=== PATIENT | female | born 1995 | race Caucasian/White ===

== ENCOUNTER 2019-12-24 16:47 | Emergency (ER) | payer OTHER ==
[~2019-12-24] VITALS: Ht 175.3 cm; Wt 71.7 kg
[2019-12-24 17:53] VITALS: BP 125/69
[2019-12-24 17:59] LABS: HEMATOCRIT 39.8 % (36.0-47.0); HEMOGLOBIN 12.7 g/dL (12.0-15.5); RED BLOOD COUNT 4.85 x10^6/uL (3.50-5.40); RED CELL DISTRIBUTION WIDTH 13.9 % (11.5-14.5)
--- NOTE | 2019-12-24 18:01 | PHYS DOC ---
Past History Past Medical History: No Pertinent History (PHILLIP OLIVER MD) Past Surgical History: Cholecystectomy, Other Additional Past Surgical Histo: gastric bypass (PHILLIP OLIVER MD) Alcohol Use: None (PHILLIP OLIVER MD) Adult General Chief Complaint Chief Complaint: VAGINAL PROBLEM HPI HPI Patient is a 24 year old female who presents with complaining of vaginal bleeding. Patient delivered a baby on December 11 earlier this month. 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 She was having normal vaginal bleeding after her delivery which had slowed down. She also had an IUD placed with delivery. Her IUD came out in Saturday. She started having heavy vaginal bleeding this morning which is finally started to slow down over the last hour. She had some chest pain last night which is now resolved. She denies any shortness of breath, cough, fever. She had some vaginal discharge last week that was milky which has now resolved. She denies any shortness of breath. She has not had any issues with bleeding previously. (PHILLIP OLIVER MD) Review of Systems Review of Systems General: Denies fever, chills, sweats, fatigue Eyes: Denies drainage, blurred vision HENT: Denies rhinorrhea, sore throat Respiratory: Denies cough, shortness of breath, wheezing Cardiac: Denies edema, palpitations, chest pain GI: Denies abdominal pain, N/V MSK: Denies back pain, neck pain Skin: Denies rash, jaundice Neuro: Denies headache, dizziness Psychiatric: Denies SI/HI All other systems were reviewed and found to be within normal limits, except as documented in this note. (PHILLIP OLIVER MD) Allergies Allergies Allergies Coded Allergies Type Severity Reaction Last Updated Verified No Known Drug Allergies 12/24/19 No (PHILLIP OLIVER MD) Physical Exam Physical Exam Constitutional: Well developed, well nourished, Cooperative, NAD, non-toxic appearing HEENT: Normocephalic, atraumatic, oropharynx moist, EOMI, PERRL, no drainage from eyes, normal conjunctiva Neck: Supple, normal range of motion, no stridor Cardiovascular: RRR, 2+ radial pulses bilaterally, no edema Respiratory: CTA bilaterally, no respiratory distress, no wheezing/crackles Abdomen: Soft, nontender, nondistended, no masses Skin: Warm, dry, intact Extremities: No obvious deformities Neurologic: Alert and Oriented x3, motor and sensory function grossly normal, no focal deficits Psychologic: Normal affect, normal judgment, normal mood. No SI/HI (PHILLIP OLIVER MD) Current Patient Data Vital Signs Vital Signs Date Time Temp Pulse Resp B/P (MAP) Pulse Ox O2 Delivery O2 Flow Rate FiO2 12/24/19 16:56 99.4 136/74 (94) 100 Room Air (PHILLIP OLIVER MD) EKG EKG [] (PHILLIP OLIVER MD) Radiology/Procedures Radiology/Procedures [] (PHILLIP OLIVER MD) Impressions: Exam: Ultrasound pelvis Indication: Bleeding, discharge, IUD fell off Technique: Real-time grayscale and color Doppler images of the pelvis were obtained by the department gas distribution plant operator. Comparisons: None FINDINGS: Uterus measures 13.6 x 9.9 x 7.1 cm. Endometrium is 2.3 cm in thickness. Right ovary measures 2.8 x 1.5 x 1.4 cm. Left ovary measures 3.5 x 2.0 x 1.4 cm. Vascular flow is identified within the ovaries bilaterally. Trace free fluid. IMPRESSION: 1. Heterogenous fluid noted within the endometrial cavity, likely representing hemorrhagic products. 2. Normal sonographic appearance of the ovaries. Electronically signed by: Luis Fernando Corey MD (12/24/2019 6:35 PM) [id number] DICTATED AND SIGNED BY: LUIS FERNANDO COREY MD DATE: 12/24/191834 CC: BERTO SALAS DO; PHILLIP OLIVER MD; PCP,NO ~ (BERTO SALAS DO) Course & Med Decision Making Course & Med Decision Making Pertinent Labs and Imaging studies reviewed. (See chart for details) Patient is a 24-year-old female who presents to the emergency room complaining of vaginal bleeding . It is likely that she is having withdrawal bleeding as her IUD fell out. However given that she has had some discharge and has a mildly elevated temperature, and so with multiple pads today will do a work-up for retained products. Ultrasound, CBC, coags, BMP, UA were ordered. Patient was discussed with oncoming physician who will assume care. (PIHLLIP OLIVER MD) Course & Med Decision Making The patient's labs are unremarkable. Her ultrasound does show fluid in the uterus that is likely hemorrhagic products. I have provided a printout of this official reading to the patient. She will follow up with her OB, who delivered her baby recently. Her labs are unremarkable. She is not anemic. She is stable for discharge at this time. (BERTO SALAS DO) Dragon Disclaimer Dragon Disclaimer This electronic medical record was generated, in whole or in part, using a voice recognition dictation system. (PHILLIP OLIVER MD) Departure Departure: Impression: Primary Impression: hemorrhage Disposition: HOME, SELF-CARE Condition: STABLE Referrals: PCP,NO (PCP) Problem Qualifiers Primary Impression: hemorrhage hemorrhage type: unspecified Qualified Codes: O72.1 - Other immediate hemorrhage PHILLIP OLIVER MD Dec 24, 2019 18:01 BERTO SALAS DO Dec 24, 2019 18:47
[2019-12-24 18:07] LABS: CALCIUM 8.3 mg/dL (8.5-10.1); CREATININE 0.7 mg/dL (0.6-1.0)
--- NOTE | 2019-12-24 18:38 | RAD ---
Exam: Ultrasound pelvis Indication: Bleeding, discharge, IUD fell off Technique: Real-time grayscale and color Doppler images of the pelvis were obtained by the department cross tie cutter. Comparisons: None FINDINGS: Uterus measures 13.6 x 9.9 x 7.1 cm. Endometrium is 2.3 cm in thickness. Right ovary measures 2.8 x 1.5 x 1.4 cm. Left ovary measures 3.5 x 2.0 x 1.4 cm. Vascular flow is identified within the ovaries bilaterally. Trace free fluid. IMPRESSION: 1. Heterogenous fluid noted within the endometrial cavity, likely representing hemorrhagic products. 2. Normal sonographic appearance of the ovaries. Electronically signed by: Francesca Feliciano MD (12/24/2019 6:35 PM) [id number]
== END 2019-12-24 18:58 | disposition home or self-care (01) ==
LOC: ER 16:47
DX: O72.1 Other immediate postpartum hemorrhage (principal); R07.89 Other chest pain; Z98.890 Other specified postprocedural states; Z90.49 Acquired absence of other specified parts of digestive tract; Z98.84 Bariatric surgery status
CPT/HCPCS: 36415; 76856; 80048; 85027; 85610; 85730; 99284-25

== ENCOUNTER 2020-01-17 19:17 | Emergency (ER) | payer OTHER ==
[~2020-01-17] VITALS: Ht 175.3 cm; Wt 70.4 kg
--- NOTE | 2020-01-17 19:35 | PHYS DOC ---
Past History Past Medical History: No Pertinent History Past Surgical History: Cholecystectomy, Other Additional Past Surgical Histo: gastric bypass Alcohol Use: None General Adult EDM: Chief Complaint: ABDOMINAL PAIN HPI: HPI: "... I ve been having lower abdomen pain and pelvic discharge.. I did have a baby on December 11.. and maybe started having sex too soon..." Patient is a 24 year old female who presents with above hx and complaints of lower pelvic abdomen pain and discharge. Recent vaginal delivery on December 11. Reportedly canal cultures at that time were negative for infection. Patient has remote history of STD chlamydia years ago which was treated. Patient has G 3 pregnancies and term 3. Patient has had approximately 15 lifetime sexual partners. [facility] transferred [facility] to [place]. No recent travel overseas. No specific ill contacts. There is some dysuria. No history of immunosuppression. Pt. is not breast feeding. Review of Systems: Review of Systems: Constitutional: Denies fever or chills Eyes: Denies change in visual acuity HENT: Denies nasal congestion or sore throat Respiratory: Denies cough or shortness of breath Cardiovascular: Denies chest pain or edema GI: Complains of abdominal pain, and a vaginal discharge. Patient denies nausea, vomiting, bloody stools or diarrhea : Denies dysuria Musculoskeletal: Denies back pain or joint pain Integument: Denies rash Neurologic: Denies headache, focal weakness or sensory changes Endocrine: Denies polyuria or polydipsia Lymphatic: Denies swollen glands Psychiatric: Denies depression or anxiety Heart Score: Risk Factors: Risk Factors: DM, Current or recent (<one month) smoker, HTN, HLP, family history of CAD, obesity. Risk Scores: Score 0 - 3: 2.5% MACE over next 6 weeks - Discharge Home Score 4 - 6: 20.3% MACE over next 6 weeks - Admit for Clinical Observation Score 7 - 10: 72.7% MACE over next 6 weeks - Early Invasive Strategies Family History: Family History: Non- contributory Current Medications: Current Meds: See nursing for home meds Allergies: Allergies: Allergies Coded Allergies Type Severity Reaction Last Updated Verified No Known Drug Allergies 12/24/19 No Physical Exam: PE: Constitutional: Well developed, well nourished, mild distress, non-toxic appearance. [] HENT: Normocephalic, atraumatic, bilateral external ears normal, oropharynx moist, no oral exudates, nose normal. [] Eyes: PERRLA, EOMI, conjunctiva normal, no discharge. [] Neck: Normal range of motion, no tenderness, supple, no stridor. [] Cardiovascular:Heart rate regular rhythm, no murmur [] Lungs & Thorax: Bilateral breath sounds clear to auscultation [] Abdomen: Bowel sounds normal, soft, right lower quadrant tenderness , no masses, no pulsatile masses. Old surgery scars,gastric by pass and gall bladder. Cervical motion tenderness. Some Rt. adnexal tenderness. Nonspecific discharge. Rebound to right lower quadrant Skin: Warm, dry, no erythema, no rash. [] Back: No tenderness, no CVA tenderness. [] Extremities: No tenderness, no cyanosis, no clubbing, ROM intact, no edema. [] Neurologic: Alert and oriented X 3, normal motor function, normal sensory function, no focal deficits noted. [] No true psoas sign Psychologic: Affect normal, judgement normal, mood normal. [] EKG: EKG: [] Radiology/Procedures: Radiology/Procedures: []PROCEDURE: CT ABD PELV W/ORAL&IV CONTRAST CT SCAN OF THE ABDOMEN AND PELVIS WITH IV CONTRAST. History: Right lower abdominal pain and vaginal delivery Comparison:None. Procedure: Contiguous axial images of the abdomen and pelvis were performed after the administration of 75 cc of Omni 300 IV contrast. Oral contrast: Yes. Findings: There is vague patchy opacity in the right lung base. There are suture lines along the stomach suggesting a gastric bypass. There has been prior cholecystectomy. The uterus appears normal. The ovaries appear within normal limits. The appendix is normal. Liver: Unremarkable Spleen: Unremarkable Pancreas: Unremarkable Adrenal Glands: Unremarkable Kidneys: Unremarkable There is no mass or lymphadenopathy. There is no free air. There is no free fluid. The urinary bladder appears normal. Impression: No acute findings. PQRS Compliance Statement: One or more of the following individualized dose reduction techniques were utilized for this examination: 1. Automated exposure control 2. Adjustment of the mA and/or kV according to patient size 3. Use of iterative reconstruction technique Electronically signed by: Angeles Mooney III, MD (01/17/2020 11:02 PM) [id number] DICTATED AND SIGNED BY: ANGELES MOONEY III, MD DATE: 01/17/202301 CC: KIEL REDMAN MD; PCP,NO ~ Course & Med Decision Making: Course & Med Decision Making Pertinent Labs and Imaging studies reviewed. (See chart for details) Pt. to stay on clear fluid diet only x 48 hrs. No solids or milk products. Take Keflex 500 three times a day. Use Metrogel nightly x 7 days. Follow up pending cultures. Pelvic rest. Impression: 1. Abdomen Pain and Discharge Vaginal 2. G3,T3, - Last Vaginal Delivery December 11 3. Bacterial Vaginosis [] Dragon Disclaimer: Dragon Disclaimer: This electronic medical record was generated, in whole or in part, using a voice recognition dictation system. Departure Departure: Disposition: HOME/RESIDENCE PRIOR TO ADM Condition: STABLE Referrals: PCP,SHAYY (PCP) Scripts Fluconazole (DIFLUCAN) 100 Mg Tablet 100 MG PO DAILY for yeast, #1 TAB Prov: KIEL REDMAN MD 01/17/20 Metronidazole (METROGEL-VAGINAL) 70 Gm Gel.w.appl 1 APPFUL VG QHS for BV for 5 Days, #1 EACH 0 Refills Prov: KIEL REDMAN MD 01/17/20 Cephalexin (KEFLEX) 500 Mg Capsule 500 MG PO TID for BV for 10 Days, BOTTLE Prov: KIEL REDMAN MD 01/17/20 Dragon Disclaimer This chart was dictated in whole or in part using Voice Recognition software in a busy, high-work load, and often noisy Emergency Department environment. It may contain unintended and wholly unrecognized errors or omissions. KIEL REDMAN MD January 17, 2020 19:35
[2020-01-17 20:16] LABS: BARBITURATES NEG (NEG); BENZODIAZEPINES NEG (NEG); CANNABINOIDS NEG (NEG); COCAINE NEG (NEG); METHADONE NEG (NEG); OPIATES NEG (NEG); PHENCYCLIDINE NEG (NEG)
[2020-01-17 20:17] LABS: AMPHETAMINE/METHAMPHETAMINE NEG (NEG)
[2020-01-17 20:19] LABS: U PREG PATIENT NEGATIVE (NEG)
[2020-01-17 20:20] LABS: BACTERIA,URINE FEW /HPF (0-FEW); BILIRUBIN,URINE NEG (NEG); CLARITY,URINE HAZY; COLOR,URINE STRAW; GLUCOSE,URINE NEG (NEG); NITRITE,URINE NEG (NEG); RBC,URINE OCC /HPF (0-2); SQUAMOUS EPITHELIAL CELL,UR MOD /LPF; UROBILINOGEN,URINE 0.2 mg/dL (0.2 mg/dL)
[2020-01-17] MEDS: IV RINGERS SOLUTION,LACTATED 1,000 ML IV SCH ×2 (20:24→20:52)
[2020-01-17 20:41] LABS: BASO # 0.1 x10^3/uL (0.0-0.2); BASO % 1 % (0-3); EOS # 0.5 x10^3/uL (0.0-0.7); EOS % 7 % (0-3); HEMATOCRIT 41.1 % (36.0-47.0); HEMOGLOBIN 13.1 g/dL (12.0-15.5); LYMPH # 2.4 x10^3/uL (1.0-4.8); LYMPH % 31 % (24-48); MEAN CORPUSCULAR HEMOGLOBIN 26 pg (25-35); MEAN CORPUSCULAR HGB CONC 32 g/dL (31-37); MEAN CORPUSCULAR VOLUME 82 fL (79-100); MONO # 0.6 x10^3/uL (0.0-1.1); MONO % 7 % (0-9); NEUT # 4.2 x10^3uL (1.8-7.7); NEUT % 54 % (31-73); PLATELET COUNT 331 x10^3/uL (140-400); RED BLOOD COUNT 5.04 x10^6/uL (3.50-5.40); RED CELL DISTRIBUTION WIDTH 15.4 % (11.5-14.5); WHITE BLOOD COUNT 7.7 x10^3/uL (4.0-11.0)
[2020-01-17 20:56] LABS: CALCIUM 8.9 mg/dL (8.5-10.1); CREATININE 0.8 mg/dL (0.6-1.0); GFR 87.4; POTASSIUM 3.6 mmol/L (3.5-5.1)
[2020-01-17 21:00] LABS: ALBUMIN 3.8 g/dL (3.4-5.0); DIRECT BILIRUBIN 0.1 mg/dL (0.0-0.2); TOTAL BILIRUBIN 0.7 mg/dL (0.2-1.0); TOTAL PROTEIN 8.3 g/dL (6.4-8.2)
[2020-01-17] MEDS ORDERED: CONTRAST GIVEN MC PRN (21:30)
[2020-01-17] MEDS ORDERED: IOHEXOL 240 MG/ML 50ML VIAL. PO ONE (22:00)
[2020-01-17] MEDS ORDERED: IOHEXOL 300 MG/ML 75 ML VIAL. IV ONE (22:00)
[2020-01-17] MEDS ORDERED: METR70GE14 VG (23:01)
[2020-01-17] MEDS ORDERED: CEPH-264 PO (23:01)
[2020-01-17] MEDS ORDERED: FLUC100T7 PO (23:03)
--- NOTE | 2020-01-17 23:05 | RAD ---
CT SCAN OF THE ABDOMEN AND PELVIS WITH IV CONTRAST. History: Right lower abdominal pain and vaginal delivery Comparison:None. Procedure: Contiguous axial images of the abdomen and pelvis were performed after the administration of 75 cc of Omni 300 IV contrast. Oral contrast: Yes. Findings: There is vague patchy opacity in the right lung base. There are suture lines along the stomach suggesting a gastric bypass. There has been prior cholecystectomy. The uterus appears normal. The ovaries appear within normal limits. The appendix is normal. Liver: Unremarkable Spleen: Unremarkable Pancreas: Unremarkable Adrenal Glands: Unremarkable Kidneys: Unremarkable There is no mass or lymphadenopathy. There is no free air. There is no free fluid. The urinary bladder appears normal. Impression: No acute findings. PQRS Compliance Statement: One or more of the following individualized dose reduction techniques were utilized for this examination: 1. Automated exposure control 2. Adjustment of the mA and/or kV according to patient size 3. Use of iterative reconstruction technique Electronically signed by: Artis Mooney III, MD (01/17/2020 11:02 PM) [id number]
[2020-01-17] MEDS ORDERED: KETOROLAC 30 MG/ML VIAL. IVP ONE (23:30)
[2020-01-17] MEDS ORDERED: AZITHROMYCIN 500 MG in IV NORMAL SALINE 250ML 250 ML IV ONE (23:30)
[2020-01-17] MEDS ORDERED: IV NORMAL SALINE 50ML 50 ML ONE (23:56)
[2020-01-17] MEDS ORDERED: cefTRIAXone SODIUM 1 GM VIAL ONE (23:57)
[2020-01-18] MEDS ORDERED: metroNIDAZOLE 500 MG TABLET PO ONE
[2020-01-18] MEDS ORDERED: ONDANSETRON PF 4 MG/2 ML VIAL. IVP ONE
[2020-01-18] MEDS ORDERED: AZITHROMYCIN 250 MG TABLET. PO ONE
[2020-01-18 00:35] VITALS: BP 116/81
[2020-01-19 16:07] LABS: CHLAMYDIA PROBE Negative (Negative)
== END 2020-01-18 00:41 | disposition home or self-care (01) ==
LOC: ER 19:17
DX: O86.13 Vaginitis following delivery (principal); B96.89 Other specified bacterial agents as the cause of diseases classified elsewhere; Z98.84 Bariatric surgery status; Z90.49 Acquired absence of other specified parts of digestive tract
CPT/HCPCS: 36415; 74177; 80048; 80076; 80307; 81001; 81025; 84702; 85025; 87086; 87491; 87591; 96374; 96375; 99285; J0456; J0696; J1885; J2405; J7120; Q0111; Q9966; Q9967

== ENCOUNTER 2020-04-14 17:54 | Emergency (ER) | payer OTHER ==
[~2020-04-14] VITALS: Ht 175.3 cm; Wt 78.4 kg
[~2020-04-14 17:54] MED LIST: CEPH-264 PO; FLUC100T7 PO; METR70GE14 VG
--- NOTE | 2020-04-14 17:56 | PHYS DOC ---
Past History Past Medical History: Uterine Fibroids Past Surgical History: Cholecystectomy, Gastric Bypass Additional Past Surgical Histo: gastric bypass Alcohol Use: None General Adult EDM: Chief Complaint: left side chest pain HPI: HPI: Patient is a 24 year old female who presents for evaluation of left-sided chest pain that has been progressing over the past 3 days. She states that the pain radiates to her left shoulder and she also has shortness of air. Patient has mild congestion but no specific cough. Patient has no known exposure to COVID. Patient states she is about 7 to 8 weeks but has not yet had a care visit. Patient is a 3 para 2. Patient denies any abdominal pain, vaginal bleeding or any related complaints. Patient is in mild distress on arrival Review of Systems: Review of Systems: Constitutional: Denies fever or chills Eyes: Denies change in visual acuity HENT: mild congestion no sore throat Respiratory: mild cough, has shortness of breath Cardiovascular: has chest pain no edema GI: Denies abdominal pain, nausea, vomiting, bloody stools or diarrhea : Denies dysuria Musculoskeletal: Denies back pain has left shoulder pain joint pain Integument: Denies rash Neurologic: Denies headache, focal weakness or sensory changes Endocrine: Denies polyuria or polydipsia Lymphatic: Denies swollen glands Psychiatric: Denies depression or anxiety Heart Score: HEART Score for Chest Pain: HEART Score for Chest Pain Response (Comments) Value History Slighlty/Non-Suspicious 0 ECG Normal 0 Age < 45 0 Risk Factors No Risk Factors 0 Troponin < Normal Limit 0 Total 0 Risk Factors: Risk Factors: DM, Current or recent (<one month) smoker, HTN, HLP, family history of CAD, obesity. Risk Scores: Score 0 - 3: 2.5% MACE over next 6 weeks - Discharge Home Score 4 - 6: 20.3% MACE over next 6 weeks - Admit for Clinical Observation Score 7 - 10: 72.7% MACE over next 6 weeks - Early Invasive Strategies Allergies: Allergies: Allergies Coded Allergies Type Severity Reaction Last Updated Verified No Known Drug Allergies 12/24/19 No Physical Exam: PE: Constitutional: Well developed, well nourished, mild acute distress, non-toxic appearance. [] HENT: Normocephalic, atraumatic, bilateral external ears normal, oropharynx mois t, no oral exudates, nose normal. [] Eyes: PERRL, EOMI, conjunctiva normal, no discharge. [] Neck: Normal range of motion, no tenderness, supple [] Cardiovascular:Heart rate regular rhythm, no murmur [] Lungs & Thorax: Bilateral breath sounds clear to auscultation [] Abdomen: Bowel sounds normal, soft, no tenderness, no masses, no pulsatile masses. [] Skin: Warm, dry, no erythema, no rash. [] Back: No tenderness. [] Extremities: No tenderness, no cyanosis, ROM intact, no edema. [] Neurologic: Alert and oriented X 3, normal motor function, normal sensory function, no focal deficits noted. [] Psychologic: Affect normal, judgement normal, mood normal. [] Current Patient Data: Labs: Laboratory Tests Test 04/14/20 18:12 White Blood Count 7.9 x10^3/uL Red Blood Count 4.79 x10^6/uL Hemoglobin 12.5 g/dL Hematocrit 38.7 % Mean Corpuscular Volume 81 fL Mean Corpuscular Hemoglobin 26 pg Mean Corpuscular Hemoglobin Concent 33 g/dL Red Cell Distribution Width 14.3 % Platelet Count 280 x10^3/uL Neutrophils (%) (Auto) 66 % Lymphocytes (%) (Auto) 25 % Monocytes (%) (Auto) 8 % Eosinophils (%) (Auto) 1 % Basophils (%) (Auto) 0 % Neutrophils # (Auto) 5.2 x10^3uL Lymphocytes # (Auto) 2.0 x10^3/uL Monocytes # (Auto) 0.6 x10^3/uL Eosinophils # (Auto) 0.1 x10^3/uL Basophils # (Auto) 0.0 x10^3/uL Maternal Serum HCG Beta Subunit 161114 mIU/mL Sodium Level 138 mmol/L Potassium Level 4.3 mmol/L Chloride Level 103 mmol/L Carbon Dioxide Level 25 mmol/L Anion Gap 10 Blood Urea Nitrogen 12 mg/dL Creatinine 0.9 mg/dL Estimated GFR (Cockcroft-Gault) 76.3 BUN/Creatinine Ratio 13 Glucose Level 93 mg/dL Calcium Level 8.8 mg/dL Total Bilirubin 1.0 mg/dL Aspartate Amino Transf (AST/SGOT) 16 U/L Alanine Aminotransferase (ALT/SGPT) 26 U/L Alkaline Phosphatase 94 U/L Troponin I Quantitative < 0.017 ng/mL Total Protein 7.6 g/dL Albumin 3.5 g/dL Albumin/Globulin Ratio 0.9 Lipase 150 U/L EKG: EKG: EKG is normal sinus rhythm, rate 71, essentially normal EKG, not STEMI read at 1804[] Radiology/Procedures: Radiology/Procedures: [] Impressions: [address], [place] [address] IMAGING REPORT Signed PATIENT: HERNANDO MCKEON EACCOUNT: [id number] : 1995 LOCATION: ER AGE: 24 SEX: F EXAM STATUS: REG ER ORD. PHYSICIAN: TIFAFNY CONCEPCION DO REASON: left side chest pain PROCEDURE: PORTABLE CHEST 1V Single view chest dated 04/14/2020: No comparison available. Clinical Indication: Left-sided chest pain. Findings: Single upright portable exam of the chest was performed. Heart size and mediastinal contours are within normal limits given technique. The lungs are clear without evidence of focal consolidation. Vascular interstitium is within normal limits. Impression:: Negative portable chest. Electronically signed by: Emiliano Cornelius MD (04/14/2020 6:17 PM) [facility] [place] DICTATED AND SIGNED BY: EMILIANO CORNELIUS MD DATE: 04/14/201816 CC: SHAYY HARRY; TIFFANY CONCEPCION DO ~ Course & Med Decision Making: Course & Med Decision Making Pertinent Labs and Imaging studies reviewed. (See chart for details) [] Dragon Disclaimer: Dragon Disclaimer: This electronic medical record was generated, in whole or in part, using a voice recognition dictation system. 190 stable, ED work-up unremarkable. There is no evidence of pneumonia, pneumothorax or other acute findings. EKG was normal as was her troponin. Light of the fact the patient is and a [place] swab was added although she has no obvious known COVID exposure. No additional testing needed. O2 sats were stable patient is nontoxic-appearing. Patient is approximately 8 weeks Departure Departure: Impression: Primary Impression: Left-sided chest pain Additional Impression: First trimester Disposition: HOME/RESIDENCE PRIOR TO ADM Condition: STABLE Referrals: PCPSHAYY (PCP) Patient Instructions: ABCs of , Chest Pain (Nonspecific) Additional Instructions: You have been tested for or diagnosed with COVID-19. It is an infection caused by a new type of coronavirus. COVID-19 will cause cold-like or mild flu symptoms in most. It can cause more severe symptoms like problems breathing in some. There is no treatment for COVID-19. The body will clear the infection over time. Self-care will help to ease discomfort. Steps to Take: Self-Care Rest as needed. Healthy habits may help you feel better. Steps include: Choose healthy foods including fruits and vegetables. Drink water throughout the day. Get plenty of sleep each night. If you smoke, try to quit. It may ease breathing. Avoid alcohol. Keep Others Healthy The virus can spread to others. Droplets are released every time you sneeze or cough. The droplets can get into the mouth, nose, or eyes of people near you and lead to infection. To lower the chances of spreading COVID-19 to others: Stay at home until your doctor has said it is safe to leave. If you tested positive this will mean staying isolated until both of the following are true: At least 7 days have passed since the start of illness. You are free of fever for at least 72 hours without the use of medicine. During this time: - Avoid public areas, events, or transportation. Do not return to work or school until your doctor has said it is safe to do so. - Call ahead if you need to go to a medical center. Let them know you may have COVID-19. It will help them guide you where to go. They may also ask you to wear a facemask when you come to the office. - If you call for emergency medical services, let them know you may have COVID- 19. While at home: - Try to avoid close contact with others. Stay about 6 feet away. - If possible, spend most of your time in a separate room from others. - Use a face mask if you will be in close contact with others such as sharing a room or vehicle. - Have someone wipe down common surfaces in the home. Use household disability aide every day on areas like doorknobs, counters, or sinks. - Cough or sneeze into a tissue. Throw the tissue away right after use. If a tissue is not available, cough or sneeze into your elbow. - Wash your hands often. Wash them after sneezing or coughing. Use soap and water and wash for at least 20 seconds. Alcohol based hand cleaner industrial can be used if soap and water is not available. - Do not prepare food for others. Avoid sharing personal items like forks, spoons, or toothbrushes. - Avoid close contact with pets while you are sick. There is no evidence of the virus passing to pets. This is a safety step until more is known about this virus. Isolation can be frustrating. Social interaction can help. Keep in touch with friends and family through phone and tech options. You can still interact with others in your home, just keep a safe distance of about 6 feet. Follow-up: Your doctors office will check in with you to see if there are any changes in your health. You may be asked to keep track of symptoms to share with them. They will also let you know when you are clear to be in public again. Problems to Look Out For: Contact your doctor if your recovery is not going as you expect. Get emergency care if you have problems such as: - Trouble breathing - Nonstop chest pain or pressure - Changes in awareness, confusion, or problems waking - Lips or face have bluish color - Worsening of symptoms If you think you have an emergency, call for emergency medical services right away. As taken from [facility] Justification of Admission: Justification of Admission: Justification of Admission Dx: N/A COVID-19 Assessment COVID-19 Patient Risks: Age 65 or older: No Sign of co-morbidity: No Exp to person + for COVID: No Exp to PUI: No Travel from affected area: No Lower respiratory symptoms: No Fever: No Other: Yes () PPE Use: Full PPE with N95 mask or PAPR: Yes TIFFANY CONCEPCION DO Apr 14, 2020 17:56
--- NOTE | 2020-04-14 18:20 | RAD ---
Single view chest dated 04/14/2020: No comparison available. Clinical Indication: Left-sided chest pain. Findings: Single upright portable exam of the chest was performed. Heart size and mediastinal contours are within normal limits given technique. The lungs are clear without evidence of focal consolidation. Vascular interstitium is within normal limits. Impression:: Negative portable chest. Electronically signed by: Emiliano Cornelius MD (04/14/2020 6:17 PM) [facility]
[2020-04-14 18:23] LABS: BASO % 0 % (0-3); EOS # 0.1 x10^3/uL (0.0-0.7); EOS % 1 % (0-3); HEMATOCRIT 38.7 % (36.0-47.0); HEMOGLOBIN 12.5 g/dL (12.0-15.5); LYMPH % 25 % (24-48); MEAN CORPUSCULAR HEMOGLOBIN 26 pg (25-35); MEAN CORPUSCULAR HGB CONC 33 g/dL (31-37); MEAN CORPUSCULAR VOLUME 81 fL (79-100); MONO # 0.6 x10^3/uL (0.0-1.1); MONO % 8 % (0-9); NEUT # 5.2 x10^3uL (1.8-7.7); NEUT % 66 % (31-73); PLATELET COUNT 280 x10^3/uL (140-400); RED BLOOD COUNT 4.79 x10^6/uL (3.50-5.40); RED CELL DISTRIBUTION WIDTH 14.3 % (11.5-14.5); WHITE BLOOD COUNT 7.9 x10^3/uL (4.0-11.0)
[2020-04-14 18:32] LABS: CALCIUM 8.8 mg/dL (8.5-10.1); CREATININE 0.9 mg/dL (0.6-1.0); GFR 76.3; POTASSIUM 4.3 mmol/L (3.5-5.1)
[2020-04-14 18:38] LABS: ALBUMIN 3.5 g/dL (3.4-5.0); ALBUMIN/GLOBULIN RATIO 0.9 (1.0-1.7); TOTAL PROTEIN 7.6 g/dL (6.4-8.2)
[2020-04-14 19:17] VITALS: BP 109/65
--- NOTE | 2020-04-15 01:02 | EKG ---
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
== END 2020-04-14 19:15 | disposition home or self-care (01) ==
LOC: ER 17:54
DX: O26.891 Other specified pregnancy related conditions, first trimester (principal); R07.89 Other chest pain; R06.02 Shortness of breath; Z20.828 Contact with and (suspected) exposure to other viral communicable diseases; Z3A.01 Less than 8 weeks gestation of pregnancy
CPT/HCPCS: 36415; 71045; 80053; 83690; 84484; 84702; 85025; 93005; 99285; U0003

== ENCOUNTER 2021-06-01 02:39 | Emergency (ER) | payer OTHER ==
[~2021-06-01] VITALS: Ht 175.3 cm; Wt 69.9 kg
--- NOTE | 2021-06-01 02:58 | PHYS DOC ---
Past History Past Medical History: Uterine Fibroids Past Surgical History: Cholecystectomy, Gastric Bypass Additional Past Surgical Histo: gastric bypass Alcohol Use: None Adult General Chief Complaint Chief Complaint: CHEST PAIN HPI HPI Patient is a 26-year-old female, otherwise healthy who presents with chest pain. Review of Systems Review of Systems Constitutional: Denies fever or chills [] Eyes: Denies change in visual acuity, redness, or eye pain [] HENT: Denies nasal congestion or sore throat [] Respiratory: Denies cough or shortness of breath [] Cardiovascular: No additional information not addressed in HPI [] GI: Denies abdominal pain, nausea, vomiting, bloody stools or diarrhea [] : Denies dysuria or hematuria [] Musculoskeletal: Denies back pain or joint pain [] Integument: Denies rash or skin lesions [] Neurologic: Denies headache, focal weakness or sensory changes [] Endocrine: Denies polyuria or polydipsia [] All other systems were reviewed and found to be within normal limits, except as documented in this note. Allergies Allergies Allergies Coded Allergies Type Severity Reaction Last Updated Verified No Known Drug Allergies 06/01/21 No Physical Exam Physical Exam Constitutional: Well developed, well nourished, no acute distress, non-toxic appearance. [] HENT: Normocephalic, atraumatic, bilateral external ears normal, oropharynx moist, no oral exudates, nose normal. [] Eyes: PERRLA, EOMI, conjunctiva normal, no discharge. [] Neck: Normal range of motion, no tenderness, supple, no stridor. [] Cardiovascular:Heart rate regular rhythm, no murmur [] Lungs & Thorax: Bilateral breath sounds clear to auscultation [] Abdomen: Bowel sounds normal, soft, no tenderness, no masses, no pulsatile masses. [] Skin: Warm, dry, no erythema, no rash. [] Back: No tenderness, no CVA tenderness. [] Extremities: No tenderness, no cyanosis, no clubbing, ROM intact, no edema. [] Neurologic: Alert and oriented X 3, normal motor function, normal sensory function, no focal deficits noted. [] Psychologic: Affect normal, judgement normal, mood normal. [] Current Patient Data Vital Signs Vital Signs Date Time Temp Pulse Resp B/P (MAP) Pulse Ox O2 Delivery O2 Flow Rate FiO2 06/01/21 02:47 98.0 83 18 99 Room Air EKG EKG [] Radiology/Procedures Radiology/Procedures [] Heart Score C/O Chest Pain: Yes HEART Score for Chest Pain: HEART Score for Chest Pain Response (Comments) Value History Slighlty/Non-Suspicious 0 ECG Normal 0 Age < 45 0 Risk Factors No Risk Factors 0 Troponin < Normal Limit 0 Total 0 Risk Factors: Risk Factors: DM, Current or recent (<one month) smoker, HTN, HLP, family history of CAD, obesity. Risk Scores: Risk Factors: DM, Current or recent (<one month) smoker, HTN, HLP, family history of CAD, obesity. Course & Med Decision Making Course & Med Decision Making Patient is a 26-year-old female who presents with chest pain Vital signs not concerning. EKG noted above and normal. Troponin normal. Low risk Wells. PERC negative. Chest x-ray not concerning. On reassessment patient's pain had resolved. Discussed differential diagnosis of her symptoms. Advised to follow-up in the morning with primary care physician. Gave strict return precautions to the ED. Patient grateful, verbalized understanding and agreed with plan of discharge. [] Dragon Disclaimer Dragon Disclaimer This electronic medical record was generated, in whole or in part, using a voice recognition dictation system. Departure Departure: Impression: Primary Impression: Chest pain Disposition: HOME / SELF CARE / HOMELESS Condition: GOOD Referrals: PCP,UNKNOWN (PCP) RENETTA FLETCHER MD Patient Instructions: Chest Pain (Nonspecific) Additional Instructions: Thank you for coming into the emergency department tonight and allowing us to take care of you. Please read the attached information carefully to go back over things we discussed. Although your work-up tonight for cardiac chest pain was reassuring at this particular moment with a good EKG, chest x-ray and troponin protein we discussed elective cardiac damage that does not mean you do not have something going on. It would be beneficial if you call your primary care physician first thing in the morning to update on ED visit and set up a follow-up appointment as soon as possible to discuss further evaluation and treatment. Please come back to the ED with new or concerning symptoms as discussed. TIFFANY SANTIAGO MD Jun 01, 2021 02:58
--- NOTE | 2021-06-01 03:16 | EKG ---
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
--- NOTE | 2021-06-01 06:52 | RAD ---
EXAM: CHEST ONE VIEW. HISTORY: Chest pain. COMPARISON: 04/14/2020. FINDINGS: A frontal view of the chest is obtained. There are no confluent infiltrates. There is no pneumothorax or pleural effusion. The heart is not en larged. IMPRESSION: 1. No confluent infiltrates. Electronically signed by: Edmundo Tellez MD (06/01/2021 6:50 AM) [facility]
== END 2021-06-01 03:58 | disposition home or self-care (01) ==
LOC: ER 02:39
DX: R07.89 Other chest pain (principal); Z90.49 Acquired absence of other specified parts of digestive tract
CPT/HCPCS: 36415; 71045; 84484; 93005; 99285-25